=== PATIENT | male | born 1985 | race Caucasian/White ===

== ENCOUNTER 2017-08-24 18:26 | Emergency (ER) | payer MEDICAID ==
[2017-08-24 20:30] VITALS: BP 120/87
--- NOTE | 2017-08-24 20:43 | UC ---
UC General HPI - HPI Summary HPI Summary: pt states was admitted to hospital for an abscess to his R arm from IV drug use. It was to be opened and drained in the OR; however, he was accused of smoking and left the hospital with no antibiotic thursday night. he was told not to come back unless he had a medical reason. pt comes here for the abscess. he notes the redness to his forearm is better but an abscess remains. denies fever, chills, joint pain. states would go back but not sure if he can - History of Current Complaint Hx Obtained From: Patient Onset/Duration: Gradual Onset Timing: Constant Pain Intensity: 7 Aggravating: nothing Alleviating: improved some with IV antibiotics Associated Signs & Symptoms: Negative: Fever <Tamera Hernandez - Last Filed: 08/24/17 20:59> <Colette Mauricio - Last Filed: 08/24/17 21:34> - History of Current Complaint Chief Complaint: [place] Stated Complaint: (R) ARM SKIN COMPLAINT Time Seen by Provider: 08/24/17 20:31 - Allergy/Home Medications Allergies/Adverse Reactions: Allergies Allergy/AdvReac Type Severity Reaction Status Date / Time acetaminophen [From Vicodin] Allergy Palpitation Verified 08/24/17 20:22 s hydrocodone [From Vicodin] Allergy Palpitation Verified 08/24/17 20:22 s morphine Allergy Abdominal Verified 08/24/17 20:22 Pain vancomycin Allergy Flushing Verified 08/24/17 20:22 PMH/Surg Hx/FS Hx/Imm Hx - Additional Past Medical History Additional PMH: IVDA, Hep C - Surgical History Surgical History: Yes Surgery Procedure, Year, and Place: RIGHT EAR PUNCTURE/CYST SX - Social History Lives: With Family Alcohol Use: None Substance Use Type: Marijuana Substance Use Comment - Amount & Last Used: SHAN Smoking Status (MU): Heavy Every Day Tobacco Smoker Type: Cigarettes Amount Used/How Often: 2 PPD Length of Time of Smoking/Using Tobacco: 20 YRS - Immunization History Most Recent Tetanus Shot: less then 10 yrs <Tamera Hernandez - Last Filed: 08/24/17 20:59> Review of Systems Constitutional: Negative Skin: Rash - Front of R elbow area with tenderness and swelling Eyes: Negative ENT: Negative Respiratory: Negative Cardiovascular: Negative Gastrointestinal: Negative Genitourinary: Negative Motor: Negative Neurovascular: Negative Musculoskeletal: Negative Neurological: Negative Psychological: Negative Is Patient Immunocompromised?: No All Other Systems Reviewed And Are Negative: Yes <Tamera Hernandez - Last Filed: 08/24/17 20:59> Physical Exam Triage Information Reviewed: Yes Appearance: Well-Appearing Vital Signs: Initial Vital Signs Temp 98.8 F 08/24/17 20:23 Pulse 103 08/24/17 20:23 Resp 18 08/24/17 20:23 BP 120/87 08/24/17 20:23 Pulse Ox 99 08/24/17 20:23 Vital Signs Reviewed: Yes Eyes: Positive: Conjunctiva Clear ENT: Positive: Normal ENT inspection Neck: Positive: Supple, Nontender, No Lymphadenopathy Respiratory: Positive: Lungs clear, Normal breath sounds Cardiovascular: Positive: RRR, No Murmur Abdomen Description: Positive: Nontender, No Organomegaly, Soft Bowel Sounds: Positive: Present Musculoskeletal: Positive: ROM Intact - RUE Neurological: Positive: Alert Psychological: Positive: Age Appropriate Behavior Skin Exam: Normal, Other - R antecubital fossa with mild swelling, tenderness and fluctuant. <Tamera Hernandez - Last Filed: 08/24/17 20:59> Vital Signs: Initial Vital Signs Temp 98.8 F 08/24/17 20:23 Pulse 103 08/24/17 20:23 Resp 18 08/24/17 20:23 BP 120/87 08/24/17 20:23 Pulse Ox 99 08/24/17 20:23 <Colette Mauricio - Last Filed: 08/24/17 21:34> Course/Dx - Course Course Of Treatment: call placed to [facility] surgeon institution librarian, Dr Hansen. Advised of DARBY wilkes. He request pt return to the ER and be admited to the hospitalist and he will f/u in am and drain. pt agrees to this plan. [facility] ER called. Report given to Kathy alison including darby wilkes and d/w Dr Hansen. also advised of Dr Hansen's requests. - Differential Dx - Multi-Symptom Provider Diagnoses: IVDA ABSCESS R ANTECUBITAL FOSSA <Tamera Hernandez - Last Filed: 08/24/17 20:59> Discharge - Sign-Out/Discharge Documenting (check all that apply): Discharge - Billing Disposition and Condition Condition: STABLE Disposition: EMTALA <Tamera Hernandez - Last Filed: 08/24/17 20:59> - Billing Disposition and Condition Condition: STABLE Disposition: EMTALA <Colette Mauricio - Last Filed: 08/24/17 21:34> - Discharge Plan Condition: Stable Disposition: TRANS HIGHER LVL OF CARE FAC Referrals: No Primary Care Phys,NOPCP [Primary Care Provider] - Additional Instructions: GO DIRECTLY TO THE ER FROM HERE. WE SPOKE TO [facility] IN[facility]CTOR(DR HANSEN) WHO REQUEST ADMT TO HOSPITALIST AND HE WILL OPEN AND DRAIN IN AM Attestation Statement User Type: Provider - examined by me. -Titi <Colette Mauricio - Last Filed: 08/24/17 21:34>
== END 2017-08-24 21:03 | disposition short-term general hospital (02) ==
LOC: UCCORT 18:26
DX: T80.89XA Other complications following infusion, transfusion and therapeutic injection, initial encounter (principal); L02.413 Cutaneous abscess of right upper limb; Z88.5 Allergy status to narcotic agent; Z88.1 Allergy status to other antibiotic agents; F17.210 Nicotine dependence, cigarettes, uncomplicated; Y92.9 Unspecified place or not applicable; Y84.8 Other medical procedures as the cause of abnormal reaction of the patient, or of later complication, without mention of misadventure at the time of the procedure
CPT/HCPCS: 99212; G0463